=== PATIENT | female | born 1960 | race Caucasian/White ===

== ENCOUNTER 2022-02-22 08:48 | Inpatient (IN) | payer OTHER ==
[~2022-02-22] VITALS: Ht 167.6 cm; Wt 50.1 kg
[2022-02-22] MEDS ORDERED: DEXAMETHASONE SOD PHOS 10 MG/1 ML VIAL IV STA (09:00)
[2022-02-22] MEDS ORDERED: ALBUTEROL SULF 0.083% NEB SOLN 3 ML NEB NEB STA (09:00)
[2022-02-22] MEDS ORDERED: IPRATROPIUM BROMIDE 0.02% 2.5 ML NEB NEB ONE (09:00)
[2022-02-22 09:16] LABS: BASOPHILS % 0.2 % (0.0-1.0); EOSINOPHILS # (AUTO) 0.1 (0.0-0.4); EOSINOPHILS % 0.4 % (0.0-6.0); HEMATOCRIT 37.9 % (34.2-44.1); HEMOGLOBIN 12.6 g/dL (12.0-16.0); LYMPHOCYTES # (AUTO) 2.1 (1.0-3.2); MEAN CORPUSCULAR HEMOGLOBIN 33.7 pg (28-32); MEAN CORPUSCULAR HGB CONC 33.2 g/dL (31-35); MEAN CORPUSCULAR VOLUME 101.3 fL (81-99); MONOCYTES # (AUTO) 1.2 (0.2-0.8); MONOCYTES % 7.3 % (4.4-11.3); NEUTROPHILS # (AUTO) 12.7 (2.1-6.9); NEUTROPHILS % 78.1 % (38.7-80.0); PLATELET COUNT 414 x10e3/uL (140-360); RED BLOOD COUNT 3.74 x10e6/uL (3.6-5.1); RED CELL DISTRIBUTION WIDTH 13.2 % (11.7-14.4)
[2022-02-22] MEDS ORDERED: METHYLPREDNISOLONE SOD SUCC 125 MG/2ML VIAL IM ONE (09:30)
[2022-02-22] MEDS ORDERED: ONDANSETRON HCL 4 MG ORAL DISINTEGRATING TAB PO ONE (09:30)
[2022-02-22 09:45] LABS: ALBUMIN 3.8 g/dL (3.5-5.0); ALBUMIN/GLOBULIN RATIO 1.1 (0.8-2.0); ALKALINE PHOSPHATASE 84 IU/L (40-150); ANION GAP 15.9 mmol/L (8-16); BLOOD UREA NITROGEN 18 mg/dL (7-26); BUN/CREATININE RATIO 13 (6-25); CALCIUM 8.8 mg/dL (8.4-10.2); CARBON DIOXIDE 18 mmol/L (22-29); CHLORIDE 109 mmol/L (98-107); CREATININE, SERUM 1.44 mg/dL (0.57-1.11); GLUCOSE 109 mg/dL (74-118); SODIUM 140 mmol/L (136-145)
[2022-02-22 09:46] LABS: ALANINE AMINOTRANSFERASE < 6 IU/L (0-55); POTASSIUM 2.9 mmol/L (3.5-5.1)
[2022-02-22] MEDS ORDERED: ALBUTEROL/IPRATROPIUM 3 ML NEB NEB ONE ×2 (11:00→14:45)
[2022-02-22] MEDS: SODIUM CHLORIDE 0.9% 1000ML 1,000 ML IV SCH ×2 (13:30→18:03)
[2022-02-22] MEDS ORDERED: DIPHENHYDRAMINE HCL INJ 50 MG/ML VIAL IV ONE (14:30)
[2022-02-22] MEDS ORDERED: FAMOTIDINE 20 MG/2 ML VIAL IV ONE ×2 (14:47→14:49)
[2022-02-22] MEDS ORDERED: PROMETHAZINE 25MG/SOD CHL 0.9% 50 ML IV ONE (14:50)
[2022-02-22] MEDS ORDERED: ALBUTEROL/IPRATROPIUM 3 ML NEB ONE (14:55)
[2022-02-22] MEDS ORDERED: SODIUM CHLORIDE 0.9% 1000ML 1,000 ML IV SCH (16:00)
[2022-02-22] MEDS ORDERED: LORAZEPAM INJ 2 MG/ML VIAL IV ONE (16:00)
[2022-02-22] MEDS ORDERED: IOPAMIDOL 370 MG/ML 100 ML INFUS..BTL INJ ONE (16:02)
[2022-02-22] MEDS ORDERED: POTASSIUM CHLORIDE 20 MEQ TAB CR PO ONE (17:32)
[2022-02-22 18:00] VITALS: BP 110/76
[2022-02-22 18:34] VITALS: BP 116/80
[2022-02-22 19:00] VITALS: BP 88/70
[2022-02-22] MEDS ORDERED: ALBUTEROL0.63 MG/3 NEB (19:14)
[2022-02-22] MEDS ORDERED: TRELOGY (19:14)
[2022-02-22] MEDS ORDERED: ASPIRIN81 MG PO (19:14)
[2022-02-23] MEDS: SODIUM CHLORIDE 0.9% 1000ML 1,000 ML IV SCH ×2 (00:18→10:04)
[2022-02-23 07:00] VITALS: BP 120/72
[2022-02-23 07:08] LABS: BASOPHILS % 0.2 % (0.0-1.0); HEMATOCRIT 33.5 % (34.2-44.1); HEMOGLOBIN 10.9 g/dL (12.0-16.0); LYMPHOCYTES # (AUTO) 1.3 (1.0-3.2); MEAN CORPUSCULAR HEMOGLOBIN 33.7 pg (28-32); MEAN CORPUSCULAR HGB CONC 32.5 g/dL (31-35); MEAN CORPUSCULAR VOLUME 103.7 fL (81-99); MONOCYTES # (AUTO) 0.9 (0.2-0.8); MONOCYTES % 5.5 % (4.4-11.3); NEUTROPHILS # (AUTO) 14.1 (2.1-6.9); PLATELET COUNT 184 x10e3/uL (140-360); RED BLOOD COUNT 3.23 x10e6/uL (3.6-5.1); RED CELL DISTRIBUTION WIDTH 13.5 % (11.7-14.4)
[2022-02-23 07:29] LABS: CALCIUM 7.5 mg/dL (8.4-10.2); CREATININE, SERUM 1.32 mg/dL (0.57-1.11)
[2022-02-23 10:00] VITALS: BP 120/72
[2022-02-23] MEDS: ONDANSETRON HCL INJ 2MG/ML 2ML 2 MG/ML VIAL IV PRN ×2 (10:11→22:10)
[2022-02-23 12:00] VITALS: BP 146/73
[2022-02-23 15:18] VITALS: BP 141/73
[2022-02-23 20:00] VITALS: BP 133/79
[2022-02-23] MEDS: LORAZEPAM 1 MG TAB PO PRN (22:07)
[2022-02-23 22:48] VITALS: BP 133/79
[2022-02-24] VITALS (8 sets, daily range): BP systolic 119–147; BP diastolic 76–85
[2022-02-24] MEDS: SODIUM CHLORIDE 0.9% 1000ML 1,000 ML IV SCH ×2 (05:37→13:53)
[2022-02-24] MEDS: LORAZEPAM 1 MG TAB PO PRN ×2 (09:09→20:58)
[2022-02-24] MEDS: ALBUTEROL/IPRATROPIUM 3 ML NEB NEB PRN (15:40)
[2022-02-24] MEDS: ONDANSETRON HCL INJ 2MG/ML 2ML 2 MG/ML VIAL IV PRN (20:36)
[2022-02-24] MEDS: BUDESONIDE 0.5MG/2 ML NEB INH SCH (22:45)
[2022-02-25] VITALS (7 sets, daily range): BP systolic 124–158; BP diastolic 77–98
[2022-02-25] MEDS: SODIUM CHLORIDE 0.9% 1000ML 1,000 ML IV SCH ×3 (03:36→10:20)
[2022-02-25] MEDS ORDERED: DOCUSATE SODIUM 100 MG CAP PO SCH (10:30)
[2022-02-25] MEDS ORDERED: SENNOSIDES 8.6 MG TAB PO SCH (10:30)
[2022-02-25 10:54] LABS: BASOPHILS % 0.2 % (0.0-1.0); EOSINOPHILS # (AUTO) 0.1 (0.0-0.4); EOSINOPHILS % 0.5 % (0.0-6.0); HEMATOCRIT 31.7 % (34.2-44.1); HEMOGLOBIN 10.3 g/dL (12.0-16.0); LYMPHOCYTES # (AUTO) 1.1 (1.0-3.2); LYMPHOCYTES % 11.4 % (18.0-39.1); MEAN CORPUSCULAR HEMOGLOBIN 33.6 pg (28-32); MEAN CORPUSCULAR HGB CONC 32.5 g/dL (31-35); MEAN CORPUSCULAR VOLUME 103.3 fL (81-99); MONOCYTES # (AUTO) 0.8 (0.2-0.8); MONOCYTES % 7.9 % (4.4-11.3); NEUTROPHILS # (AUTO) 7.8 (2.1-6.9); NEUTROPHILS % 77.9 % (38.7-80.0); PLATELET COUNT 129 x10e3/uL (140-360); RED BLOOD COUNT 3.07 x10e6/uL (3.6-5.1); RED CELL DISTRIBUTION WIDTH 13.3 % (11.7-14.4)
[2022-02-25] MEDS: ALBUTEROL/IPRATROPIUM 3 ML NEB NEB PRN ×2 (11:10→14:49)
[2022-02-25 11:37] LABS: ANION GAP 12.8 mmol/L (8-16); CALCIUM 7.6 mg/dL (8.4-10.2); CREATININE, SERUM 0.95 mg/dL (0.57-1.11)
[2022-02-25 11:41] LABS: POTASSIUM 2.8 mmol/L (3.5-5.1)
[2022-02-25] MEDS: PREDNISONE 20 MG TAB PO SCH (11:51)
[2022-02-25] MEDS ORDERED: POTASSIUM CHLORIDE 20 MEQ TAB CR PO ONE ×3 (12:13→22:15)
[2022-02-25] MEDS: ENOXAPARIN SOD INJ 40 MG/0.4 ML SYR SC SCH (16:57)
[2022-02-25 17:55] LABS: MAGNESIUM 1.1 MG/DL (1.3-2.1)
[2022-02-25] MEDS ORDERED: POTASSIUM CHLORIDE 20 MEQ TAB CR PO STA (18:05)
[2022-02-25] MEDS ORDERED: MAGNESIUM SULFATE 2GM/50ML 50 ML IV ONE ×2 (18:15→20:15)
[2022-02-25] MEDS: ALBUTEROL/IPRATROPIUM 3 ML NEB NEB SCH (19:15)
[2022-02-25] MEDS: LORAZEPAM 1 MG TAB PO PRN (21:22)
[2022-02-26] VITALS (8 sets, daily range): BP systolic 95–147; BP diastolic 43–97
[2022-02-26] MEDS: ALBUTEROL/IPRATROPIUM 3 ML NEB NEB SCH ×4 (01:05→18:38)
[2022-02-26] MEDS: POTASSIUM CHLORIDE 20 MEQ TAB CR PO SCH ×2 (01:14→09:58)
[2022-02-26] MEDS: LORAZEPAM 1 MG TAB PO PRN ×3 (03:42→22:26)
[2022-02-26] MEDS: BUDESONIDE 0.5MG/2 ML NEB INH SCH ×2 (06:45→18:38)
[2022-02-26 07:24] LABS: BASOPHILS % 0.2 % (0.0-1.0); HEMATOCRIT 30.2 % (34.2-44.1); HEMOGLOBIN 9.9 g/dL (12.0-16.0); LYMPHOCYTES # (AUTO) 0.7 (1.0-3.2); MEAN CORPUSCULAR HEMOGLOBIN 33.4 pg (28-32); MEAN CORPUSCULAR HGB CONC 32.8 g/dL (31-35); MONOCYTES # (AUTO) 0.5 (0.2-0.8); MONOCYTES % 5.8 % (4.4-11.3); NEUTROPHILS # (AUTO) 7.6 (2.1-6.9); NEUTROPHILS % 83.4 % (38.7-80.0); PLATELET COUNT 114 x10e3/uL (140-360); RED BLOOD COUNT 2.96 x10e6/uL (3.6-5.1)
[2022-02-26] MEDS ORDERED: ACETAMINOPHEN 325 MG TAB PO PRN (07:30)
[2022-02-26 08:00] LABS: ALBUMIN/GLOBULIN RATIO 1.1 (0.8-2.0); ANION GAP 11.6 mmol/L (8-16); POTASSIUM 4.6 mmol/L (3.5-5.1)
[2022-02-26 08:10] LABS: MAGNESIUM 2.3 MG/DL (1.3-2.1)
[2022-02-26 08:30] LABS: FERRITIN 172.28 ng/mL (4.63-204.00); THYROID STIMULATING HORMONE 0.582 uIU/mL (0.350-4.940)
[2022-02-26] MEDS: PREDNISONE 20 MG TAB PO SCH (09:59)
[2022-02-26] MEDS ORDERED: CYANOCOBALAMIN INJ 1,000 MCG/ML VIAL IM ONE (10:30)
[2022-02-26] MEDS: GUAIFENESIN/DEXTROMETHORPHAN LIQD 5 ML UDC PO PRN (11:49)
[2022-02-26] MEDS: ENOXAPARIN SOD INJ 40 MG/0.4 ML SYR SC SCH (19:14)
[2022-02-27] VITALS (7 sets, daily range): BP systolic 136–150; BP diastolic 88–96
[2022-02-27] MEDS: ALBUTEROL/IPRATROPIUM 3 ML NEB NEB SCH ×4 (00:55→19:15)
[2022-02-27 06:30] LABS: ALANINE AMINOTRANSFERASE 11 IU/L (0-55); ALBUMIN 3.2 g/dL (3.5-5.0); ALBUMIN/GLOBULIN RATIO 1.1 (0.8-2.0); ALKALINE PHOSPHATASE 61 IU/L (40-150); ANION GAP 9.9 mmol/L (8-16); BLOOD UREA NITROGEN 10 mg/dL (7-26); BUN/CREATININE RATIO 10 (6-25); CALCIUM 8.5 mg/dL (8.4-10.2); CARBON DIOXIDE 20 mmol/L (22-29); CHLORIDE 114 mmol/L (98-107); CREATININE, SERUM 0.98 mg/dL (0.57-1.11); GLUCOSE 105 mg/dL (74-118); MAGNESIUM 2.1 MG/DL (1.3-2.1); POTASSIUM 3.9 mmol/L (3.5-5.1); SODIUM 140 mmol/L (136-145)
[2022-02-27] MEDS: BUDESONIDE 0.5MG/2 ML NEB INH SCH ×2 (06:30→19:15)
[2022-02-27 07:05] LABS: BASOPHILS % 0.2 % (0.0-1.0); EOSINOPHILS % 0.1 % (0.0-6.0); HEMATOCRIT 30.9 % (34.2-44.1); LYMPHOCYTES # (AUTO) 1.2 (1.0-3.2); LYMPHOCYTES % 11.4 % (18.0-39.1); MEAN CORPUSCULAR HEMOGLOBIN 33.4 pg (28-32); MEAN CORPUSCULAR HGB CONC 32.4 g/dL (31-35); MEAN CORPUSCULAR VOLUME 103.3 fL (81-99); MONOCYTES # (AUTO) 0.5 (0.2-0.8); MONOCYTES % 4.7 % (4.4-11.3); NEUTROPHILS # (AUTO) 8.5 (2.1-6.9); NEUTROPHILS % 81.2 % (38.7-80.0); RED BLOOD COUNT 2.99 x10e6/uL (3.6-5.1); RED CELL DISTRIBUTION WIDTH 13.3 % (11.7-14.4)
[2022-02-27 07:08] LABS: PLATELET COUNT 91 x10e3/uL (140-360)
[2022-02-27] MEDS: POTASSIUM CHLORIDE 20 MEQ TAB CR PO SCH (09:10)
[2022-02-27] MEDS: CYANOCOBALAMIN INJ 1,000 MCG/ML VIAL IM SCH (09:11)
[2022-02-27] MEDS: DILTIAZEM HCL 30 MG TAB PO SCH ×2 (09:22→16:43)
[2022-02-27] MEDS: GUAIFENESIN/DEXTROMETHORPHAN LIQD 5 ML UDC PO PRN (09:23)
[2022-02-27] MEDS: ONDANSETRON HCL INJ 2MG/ML 2ML 2 MG/ML VIAL IV PRN (15:15)
[2022-02-27] MEDS: ENOXAPARIN SOD INJ 40 MG/0.4 ML SYR SC SCH (16:42)
[2022-02-27] MEDS: ACETYLCYSTEINE 200 MG/ML 4ML VIAL INH SCH (19:15)
[2022-02-27] MEDS: LORAZEPAM 1 MG TAB PO PRN (21:38)
[2022-02-27] MEDS ORDERED: DIPHENHYDRAMINE HCL 25 MG CAP PO PRN (22:00)
[2022-02-28] VITALS: BP 118/67
[2022-02-28] MEDS: ALBUTEROL/IPRATROPIUM 3 ML NEB NEB SCH ×4 (01:05→18:35)
[2022-02-28 04:00] VITALS: BP 113/86
[2022-02-28 06:14] LABS: BASOPHILS % 0.3 % (0.0-1.0); EOSINOPHILS % 0.1 % (0.0-6.0); HEMATOCRIT 31.8 % (34.2-44.1); LYMPHOCYTES # (AUTO) 1.7 (1.0-3.2); LYMPHOCYTES % 14.3 % (18.0-39.1); MEAN CORPUSCULAR HEMOGLOBIN 33.3 pg (28-32); MEAN CORPUSCULAR HGB CONC 31.4 g/dL (31-35); MONOCYTES # (AUTO) 0.6 (0.2-0.8); MONOCYTES % 5.1 % (4.4-11.3); NEUTROPHILS % 76.8 % (38.7-80.0); PLATELET COUNT 103 x10e3/uL (140-360); RED CELL DISTRIBUTION WIDTH 13.4 % (11.7-14.4)
[2022-02-28 06:36] LABS: CALCIUM 8.5 mg/dL (8.4-10.2); CREATININE, SERUM 0.97 mg/dL (0.57-1.11)
[2022-02-28] MEDS: ACETYLCYSTEINE 200 MG/ML 4ML VIAL INH SCH ×2 (06:41→19:00)
[2022-02-28] MEDS: BUDESONIDE 0.5MG/2 ML NEB INH SCH ×2 (06:41→18:35)
[2022-02-28 08:41] VITALS: BP 128/92
[2022-02-28 08:58] LABS: LYMPHOCYTES % (MANUAL) 10 % (19-48); MONOCYTES % (MANUAL) 4 % (3.4-9.0); NEUTROPHILS % (MANUAL) 86 % (40-74); PLATELET ESTIMATE SLIGHTLY DECREASED; PLATELET MORPHOLOGY COMMENT NORMAL; RBC MORPHOLOGY COMMENT NORMAL
[2022-02-28] MEDS ORDERED: ASPIRIN 81 MG ENTERIC COATED PO SCH (09:00)
[2022-02-28] MEDS ORDERED: PREDNISONE 10 MG TAB PO SCH (09:00)
[2022-02-28] MEDS: DILTIAZEM HCL 30 MG TAB PO SCH ×2 (09:04→16:47)
[2022-02-28] MEDS: POTASSIUM CHLORIDE 20 MEQ TAB CR PO SCH (09:04)
[2022-02-28] MEDS: CYANOCOBALAMIN INJ 1,000 MCG/ML VIAL IM SCH (09:05)
[2022-02-28] MEDS: LORAZEPAM 1 MG TAB PO PRN (09:11)
[2022-02-28 12:00] VITALS: BP 170/91
[2022-02-28] MEDS: ENOXAPARIN SOD INJ 40 MG/0.4 ML SYR SC SCH (16:47)
[2022-02-28 17:20] VITALS: BP 125/81
[2022-02-28] MEDS ORDERED: [UNRECOGNIZED DRUG - OTHER] (18:45)
[2022-03-01] MEDS ORDERED: AZITHROMYCIN 250 MG TAB PO SCH (09:00)
== END 2022-02-28 19:38 | disposition home or self-care (01) | DRG 190 ==
LOC: ER 08:55 → ERHOLD 12:00 → ICU 17:23 → MED/SURG2 02-23 12:44
PROC: 02HV33Z Insertion of Infusion Device into Superior Vena Cava, Percutaneous Approach (ICD-10-PCS; principal; 2022-02-22)
DX: J43.9 Emphysema, unspecified (principal); J96.21 Acute and chronic respiratory failure with hypoxia; K50.90 Crohn's disease, unspecified, without complications; I47.1 Supraventricular tachycardia; Z87.891 Personal history of nicotine dependence; B18.2 Chronic viral hepatitis C; D64.9 Anemia, unspecified; Z20.822 Contact with and (suspected) exposure to COVID-19; K43.2 Incisional hernia without obstruction or gangrene; I27.20 Pulmonary hypertension, unspecified
CPT/HCPCS: 36415; 36569; 71045; 71046; 71260; 80048; 80053; 82607; 82728; 82746; 82948; 83540; 83605; 83735; 83880; 84132; 84443; 84466; 84484; 85025; 86340; 87040; 87070; 87205; 93005; 94640; 94667; 94669; 94760; 94799; 96360; 99285; J0456; J0696; J1100; J1200; J1650; J2060; J2405; J2550; J2930; J3420; J3475; J7030; J7050; J7512; Q0162; Q9967

== ENCOUNTER → 2023-12-25 | Outpatient (REF) | payer OTHER ==
[~2023-12-25] MED LIST: ALBUTEROL0.63 MG/3 NEB; ASPIRIN81 MG PO; ATORVASTATIN CA40 MG PO; CHOLESTYRAMINE L4 GM PO; TRELOGY; TYLENOL325 M2 PO; ULTRAM 50MG50 MG PO; [UNRECOGNIZED DRUG - OTHER]
== END ==
LOC: CT 15:06
PROVIDERS: ATTEND Internal Medicine Critical Care Medicine
DX: J44.9 Chronic obstructive pulmonary disease, unspecified (principal)
CPT/HCPCS: 71250

== ENCOUNTER 2024-10-23 08:47 | Inpatient (IN) | payer MEDICAID ==
[2024-10-23] VITALS (7 sets, daily range): BP systolic 143; BP diastolic 80; PULSE 83–100; RESP 20; TEMP 97.7–98; O2SAT 98–100
[~2024-10-23] VITALS: Ht 167.6 cm; Wt 47.6 kg
[2024-10-23 10:45] LABS: BASOPHILS % 0.6 % (0.0-1.0); EOSINOPHILS % 1.2 % (0.0-6.0); LYMPHOCYTES % 17.9 % (18.0-39.1); MONOCYTES % 8.4 % (4.4-11.3); NEUTROPHILS % 71.2 % (38.7-80.0); RED CELL DISTRIBUTION WIDTH 14.5 % (11.7-14.4)
[2024-10-23] MEDS: ALBUTEROL/IPRATROPIUM 3 ML NEB NEB ONE (11:05)
[2024-10-23 11:14] LABS: ABG HCO3 12 mmol/L (22-26); ABG PCO2 24 mmHg (35-45); ABG PH 7.31 (7.35-7.45); ABG PO2 105 mmHg (80-105); ABG TCO2 13
[2024-10-23 11:15] LABS: ABG BASE EXCESS -14.0 mmol/L (-2 - 3); ABG OXYGEN SATURATION 98.0 % (95-98)
[2024-10-23] MEDS: SODIUM CHLORIDE 0.9% 1000ML 1,000 ML IV ONE (12:05)
[2024-10-23] MEDS: METHYLPREDNISOLONE SOD SUCC 125 MG/2ML VIAL IV ONE (12:06)
[2024-10-23 12:46] LABS: EST GLOMERULAR FILTRATION RATE 31.0 ML/MIN (>=60)
[2024-10-23] MEDS ORDERED: SODIUM CHLORIDE FLUSH 10 ML SYR INJ PRN (14:00)
[2024-10-23] MEDS: MAGNESIUM SULFATE 2GM/50ML 50 ML IV ONE ×2 (14:40→19:20)
[2024-10-23 16:39] LABS: ETHANOL < 10.0 mg/dL (0.0-10.0)
[2024-10-23] MEDS ORDERED: SODIUM BICARBONATE 8.4% VIAL 50 ML in SODIUM CHLORIDE 0.45% 1,000 ML IV SCH (17:00)
[2024-10-23] MEDS ORDERED: ALBUTEROL SULF 0.083% NEB SOLN 3 ML NEB NEB PRN (17:00)
[2024-10-23] MEDS ORDERED: Doxycycline IV 100 MG in SODIUM CHLORIDE 0.9% 100 ML IV SCH (18:00)
[2024-10-23] MEDS: BUDESONIDE/FORMOTEROL 160/4.5MCG INHALER INH SCH (19:00)
[2024-10-23] MEDS ORDERED: ACETAMINOPHEN 325 MG TAB PO PRN (23:30)
[2024-10-23] MEDS ORDERED: DIPHENHYDRAMINE HCL 25 MG CAP PO PRN (23:30)
[2024-10-24] VITALS (9 sets, daily range): BP systolic 108–168; BP diastolic 65–95; PULSE 60–105; RESP 16–20; TEMP 97.2–97.9; O2SAT 95–100
[2024-10-24] MEDS: ATORVASTATIN 40 MG TAB PO SCH (00:09)
[2024-10-24] MEDS: Doxycycline IV 100 MG in SODIUM CHLORIDE 0.9% 100 ML IV SCH (00:09)
[2024-10-24] MEDS: METHYLPREDNISOLONE SOD SUCC 125 MG/2ML VIAL IV SCH (00:09)
[2024-10-24] MEDS: TRAMADOL HCL 50 MG TAB PO PRN (00:10)
[2024-10-24] MEDS ORDERED: SODIUM CHLORIDE 0.45% 1,000 ML ONE (00:26)
[2024-10-24] MEDS ORDERED: SODIUM BICARBONATE 8.4% SYRING 50 ML ONE (00:26)
[2024-10-24] MEDS: SODIUM BICARBONATE 8.4% VIAL 50 ML in SODIUM CHLORIDE 0.45% 1,000 ML IV SCH (01:15)
[2024-10-24 06:20] LABS: BASOPHILS % 0.1 % (0.0-1.0); EOSINOPHILS % 0.0 % (0.0-6.0); LYMPHOCYTES % 10.4 % (18.0-39.1); MONOCYTES % 1.4 % (4.4-11.3); NEUTROPHILS % 87.4 % (38.7-80.0); RED CELL DISTRIBUTION WIDTH 13.7 % (11.7-14.4)
[2024-10-24 06:43] LABS: PHOSPHORUS 3.1 MG/DL (2.3-4.7)
[2024-10-24 06:59] LABS: EST GLOMERULAR FILTRATION RATE 43.0 ML/MIN (>=60)
[2024-10-24] MEDS ORDERED: MELATONIN 3 MG TAB PO SCH (21:00)
[2024-10-25] VITALS (8 sets, daily range): BP systolic 119–157; BP diastolic 70–89; PULSE 63–92; RESP 16–21; TEMP 97.3–98.3; O2SAT 95–100
[2024-10-25] MEDS ORDERED: CHOLESTYRAMINE 4 GM PACKET PO PRN (01:00)
[2024-10-25] MEDS ORDERED: LABETALOL HCL 5 MG/ML 20ML VIAL IV PRN (01:15)
[2024-10-25 07:42] LABS: BASOPHILS % 0.1 % (0.0-1.0); EOSINOPHILS % 0.0 % (0.0-6.0); LYMPHOCYTES % 6.9 % (18.0-39.1); MONOCYTES % 1.8 % (4.4-11.3); NEUTROPHILS % 90.3 % (38.7-80.0); RED CELL DISTRIBUTION WIDTH 13.7 % (11.7-14.4)
[2024-10-25 08:08] LABS: EST GLOMERULAR FILTRATION RATE 44.0 ML/MIN (>=60)
[2024-10-25] MEDS: ARTIFICIAL TEARS (OPTH) 15 ML BTL OU SCH (09:00)
[2024-10-25 09:02] LABS: CHOL/HDL RATIO 2.4 (3.0-3.6); LDL CHOLESTEROL 12.0 MG/DL (60-130)
[2024-10-25] MEDS ORDERED: LEVOFLOXACIN 500MG/D5W 100ML 100 ML IV SCH (13:00)
[2024-10-25] MEDS: SODIUM BICARBONATE 650 MG TAB PO SCH (17:53)
[2024-10-25] MEDS: DIPHENHYDRAMINE HCL 25 MG CAP PO PRN (20:56)
[2024-10-26] VITALS (11 sets, daily range): BP systolic 118–146; BP diastolic 61–93; PULSE 62–87; RESP 18–20; TEMP 97.4–98.2; O2SAT 95–100
[2024-10-26 05:36] LABS: EST GLOMERULAR FILTRATION RATE 47.0 ML/MIN (>=60)
[2024-10-26] MEDS: METHYLPREDNISOLONE SOD SUCC 40 MG/ML VIAL 1ML IV SCH (08:36)
[2024-10-26] MEDS: POTASSIUM CHLORIDE 20 MEQ TAB CR PO ONE (11:12)
[2024-10-26 15:33] LABS: % IRON SATURATION 26.0 % (15-50)
[2024-10-26] MEDS: CYANOCOBALAMIN INJ 1,000 MCG/ML VIAL IM SCH (18:40)
[2024-10-26] MEDS: IRON SUCROSE 100 MG in SODIUM CHLORIDE 0.9% 100 ML IV SCH (18:40)
[2024-10-27] VITALS (12 sets, daily range): BP systolic 113–134; BP diastolic 72–96; PULSE 62–78; RESP 17–22; TEMP 97.4–98; O2SAT 94–100
[2024-10-27 06:13] LABS: BASOPHILS % 0.2 % (0.0-1.0); EOSINOPHILS % 0.6 % (0.0-6.0); LYMPHOCYTES % 9.4 % (18.0-39.1); MONOCYTES % 6.0 % (4.4-11.3); NEUTROPHILS % 82.2 % (38.7-80.0); RED CELL DISTRIBUTION WIDTH 13.9 % (11.7-14.4)
[2024-10-27 06:53] LABS: EST GLOMERULAR FILTRATION RATE 48.0 ML/MIN (>=60)
[2024-10-27] MEDS: LACTATED RINGER'S 1,000 ML INJ SCH (10:38)
[2024-10-27] MEDS: POTASSIUM CHLORIDE 20 MEQ TAB CR PO ONE (10:38)
[2024-10-27] MEDS: SODIUM CHLORIDE 0.9% 250ML 250 ML IV ONE (10:56)
[2024-10-27] MEDS: ONDANSETRON HCL INJ 2MG/ML 2ML 2 MG/ML VIAL IV PRN (15:53)
[2024-10-28] VITALS (7 sets, daily range): BP systolic 117–132; BP diastolic 69–75; PULSE 65–79; RESP 18–20; TEMP 97.7–98; O2SAT 93–100
[2024-10-28 07:12] LABS: BASOPHILS % 0.2 % (0.0-1.0); EOSINOPHILS % 1.3 % (0.0-6.0); LYMPHOCYTES % 12.5 % (18.0-39.1); MONOCYTES % 4.8 % (4.4-11.3); NEUTROPHILS % 77.1 % (38.7-80.0); RED CELL DISTRIBUTION WIDTH 13.6 % (11.7-14.4)
[2024-10-28 07:37] LABS: EST GLOMERULAR FILTRATION RATE 61.0 ML/MIN (>=60)
[2024-10-28] MEDS: PREDNISONE 20 MG TAB PO SCH (08:40)
[2024-10-28] MEDS ORDERED: PREDNISONE20 MG PO (14:13)
[2024-10-28] MEDS ORDERED: SYMBICORT 16010.2 GM INH (14:13)
[2024-10-28] MEDS ORDERED: AUGMENTIN 500-1 EACH PO (14:13)
[2024-10-29 10:50] LABS: ABG BASE EXCESS -14.0 mmol/L (-2 - 3); ABG HCO3 12 mmol/L (22-26); ABG OXYGEN SATURATION 98.0 % (95-98); ABG PCO2 24 mmHg (35-45); ABG PH 7.31 (7.35-7.45); ABG PO2 105 mmHg (80-105); ABG TCO2 13
== END 2024-10-28 15:30 | disposition home or self-care (01) | DRG 682 ==
LOC: ER 09:53 → ERHOLD 13:55 → MED/SURG2 22:15
PROVIDERS: ADMIT Internal Medicine; ATTEND Internal Medicine
PROC: 4A133R1 Monitoring of Arterial Saturation, Peripheral, Percutaneous Approach (ICD-10-PCS; principal; 2024-10-23)
PROC: 02HV33Z Insertion of Infusion Device into Superior Vena Cava, Percutaneous Approach (ICD-10-PCS; 2024-10-25)
DX: N17.9 Acute kidney failure, unspecified (principal); J15.9 Unspecified bacterial pneumonia; R64 Cachexia; E87.20 Acidosis, unspecified; J44.1 Chronic obstructive pulmonary disease with (acute) exacerbation; J44.0 Chronic obstructive pulmonary disease with (acute) lower respiratory infection; K50.918 Crohn's disease, unspecified, with other complication; Z68.1 Body mass index [BMI] 19.9 or less, adult; E86.0 Dehydration; N18.31 Chronic kidney disease, stage 3a; J43.9 Emphysema, unspecified; K52.9 Noninfective gastroenteritis and colitis, unspecified; E83.42 Hypomagnesemia; E87.6 Hypokalemia; D50.9 Iron deficiency anemia, unspecified; R91.1 Solitary pulmonary nodule; R53.81 Other malaise; B18.2 Chronic viral hepatitis C; Z79.82 Long term (current) use of aspirin; Z86.73 Personal history of transient ischemic attack (TIA), and cerebral infarction without residual deficits; Z90.49 Acquired absence of other specified parts of digestive tract; Z88.1 Allergy status to other antibiotic agents; Z88.6 Allergy status to analgesic agent; F17.210 Nicotine dependence, cigarettes, uncomplicated
CPT/HCPCS: 36415; 36569; 36600; 71045; 71250; 80048; 80053; 80061; 80320; 80329; 82607; 82728; 82746; 82805; 83036; 83540; 83605; 83735; 84100; 84133; 84300; 84439; 84443; 84466; 85025; 85045; 93005; 94640; 94799; 99252; 99285; J0696; J1756; J2405; J2543; J2919; J3420; J3475; J7030; J7050; J7512

== ENCOUNTER 2024-10-29 20:59 | Inpatient (IN) | payer MEDICAID ==
[~2024-10-29] VITALS: Ht 167.6 cm; Wt 47.6 kg
[~2024-10-29 20:59] MED LIST changes: +AUGMENTIN 500-1 EACH PO; +PREDNISONE20 MG PO; +SYMBICORT 16010.2 GM INH
[2024-10-29 22:55] LABS: EST GLOMERULAR FILTRATION RATE 51.0 ML/MIN (>=60)
[2024-10-29 23:03] LABS: BASOPHILS % 0.2 % (0.0-1.0); EOSINOPHILS % 0.0 % (0.0-6.0); LYMPHOCYTES % 15.2 % (18.0-39.1); MONOCYTES % 6.4 % (4.4-11.3); NEUTROPHILS % 76.0 % (38.7-80.0); RED CELL DISTRIBUTION WIDTH 13.6 % (11.7-14.4)
[2024-10-30] VITALS (11 sets, daily range): BP systolic 95–145; BP diastolic 68–87; PULSE 71–103; RESP 16–20; TEMP 97.7–98.8; O2SAT 95–99
[2024-10-30] MEDS: ONDANSETRON HCL INJ 2MG/ML 2ML 2 MG/ML VIAL IV PRN (03:45)
[2024-10-30] MEDS: Morphine 2mg Syringe 2 MG/ML SYR IV PRN (03:45)
[2024-10-30] MEDS: FUROSEMIDE INJ 10 MG/ML 4 ML VIAL IV SCH (16:02)
[2024-10-30] MEDS: ENOXAPARIN 30 MG/0.3 ML SYR SC SCH (16:34)
[2024-10-31] VITALS (9 sets, daily range): BP systolic 89–107; BP diastolic 57–78; PULSE 52–106; RESP 12–20; TEMP 97.5–98.3; O2SAT 94–100
[2024-10-31 10:45] LABS: BASOPHILS % 0.2 % (0.0-1.0); EOSINOPHILS % 1.1 % (0.0-6.0); LYMPHOCYTES % 13.3 % (18.0-39.1); MONOCYTES % 6.5 % (4.4-11.3); NEUTROPHILS % 77.2 % (38.7-80.0); RED CELL DISTRIBUTION WIDTH 13.8 % (11.7-14.4)
[2024-10-31 11:04] LABS: EST GLOMERULAR FILTRATION RATE 34.0 ML/MIN (>=60)
[2024-10-31] MEDS ORDERED: ALBUTEROL SULF 0.083% NEB SOLN 3 ML NEB NEB PRN (14:15)
[2024-10-31 16:52] LABS: LEUKOCYTE ESTERASE ,URINE NEGATIVE (NEGATIVE); PROTEIN,URINE DIPSTICK NEGATIVE (NEGATIVE); URINE UROBILINOGEN 0.2 mg/dL (0.2 - 1)
[2024-10-31 17:03] LABS: EPITHELIAL CELLS,URINE RARE /LPF; WBC,URINE (MAN) 0-5 /HPF (0-5)
[2024-10-31] MEDS: BUDESONIDE/FORMOTEROL 160/4.5MCG INHALER INH SCH (19:06)
[2024-10-31] MEDS: ATORVASTATIN 40 MG TAB PO SCH (22:52)
[2024-11-01] VITALS (9 sets, daily range): BP systolic 100–128; BP diastolic 65–84; PULSE 65–88; RESP 16–18; TEMP 97.4–98.4; O2SAT 94–100
[2024-11-01 06:31] LABS: BASOPHILS % 0.1 % (0.0-1.0); EOSINOPHILS % 1.0 % (0.0-6.0); LYMPHOCYTES % 11.8 % (18.0-39.1); MONOCYTES % 5.0 % (4.4-11.3); NEUTROPHILS % 80.4 % (38.7-80.0); RED CELL DISTRIBUTION WIDTH 13.8 % (11.7-14.4)
[2024-11-01 06:47] LABS: EST GLOMERULAR FILTRATION RATE 35.0 ML/MIN (>=60)
[2024-11-01] MEDS: FUROSEMIDE INJ 10 MG/ML 4 ML VIAL IV SCH (08:07)
[2024-11-01] MEDS: POTASSIUM CHLORIDE 10MEQ EA PO ONE (08:09)
[2024-11-01] MEDS: METOPROLOL SUCCINATE 25 MG TAB XL PO SCH (17:21)
[2024-11-02] VITALS (9 sets, daily range): BP systolic 106–122; BP diastolic 61–82; PULSE 64–92; RESP 17–18; TEMP 97.7–98.9; O2SAT 95–100
[2024-11-02 07:21] LABS: EST GLOMERULAR FILTRATION RATE 37.0 ML/MIN (>=60)
[2024-11-02 07:27] LABS: BASOPHILS % 0.2 % (0.0-1.0); EOSINOPHILS % 1.5 % (0.0-6.0); LYMPHOCYTES % 16.1 % (18.0-39.1); MONOCYTES % 5.3 % (4.4-11.3); NEUTROPHILS % 76.0 % (38.7-80.0); RED CELL DISTRIBUTION WIDTH 13.6 % (11.7-14.4)
[2024-11-02] MEDS: CYANOCOBALAMIN INJ 1,000 MCG/ML VIAL IM SCH (10:21)
[2024-11-02] MEDS: IRON SUCROSE 100 MG in SODIUM CHLORIDE 0.9% 100 ML IV SCH (10:22)
[2024-11-02 13:43] LABS: BAND NEUTROPHILS % (MANUAL) 2 %; EOSINOPHILS % (MANUAL) 3 % (0-7); LYMPHOCYTES % (MANUAL) 14 % (19-48); MONOCYTES % (MANUAL) 4 % (3.4-9.0); NEUTROPHILS % (MANUAL) 77 % (40-74)
[2024-11-02 13:45] LABS: PLATELET ESTIMATE ADEQUATE; PLATELET MORPHOLOGY COMMENT NORMAL; RBC MORPHOLOGY COMMENT NORMAL
[2024-11-03] VITALS (7 sets, daily range): BP systolic 106–127; BP diastolic 62–80; PULSE 65–95; RESP 16–18; TEMP 97.1–98.2; O2SAT 95–100
[2024-11-03] MEDS: ASCORBIC ACID 500 MG TAB PO SCH (08:31)
[2024-11-03] MEDS ORDERED: ASCORBIC ACID500 MG PO (12:24)
[2024-11-03] MEDS ORDERED: ONE-A-DAY ESSE1 EACH PO (12:24)
[2024-11-03] MEDS ORDERED: TOPROL XL25 MG PO (12:24)
[2024-11-03] MEDS ORDERED: FEROSUL325 MG PO (12:24)
[2024-11-03] MEDS ORDERED: AUGMENTIN 500-1 EACH PO (12:24)
[2024-11-03] MEDS ORDERED: LASIX40 MG PO (12:24)
== END 2024-11-03 17:20 | disposition home or self-care (01) | DRG 291 ==
LOC: ER 21:02 → ERHOLD 10-30 00:46 → MED/SURG 10-30 02:01
PROVIDERS: ADMIT Internal Medicine; ATTEND Internal Medicine
PROC: 05HY33Z Insertion of Infusion Device into Upper Vein, Percutaneous Approach (ICD-10-PCS; principal; 2024-10-30)
DX: I50.43 Acute on chronic combined systolic (congestive) and diastolic (congestive) heart failure (principal); J18.9 Pneumonia, unspecified organism; L03.114 Cellulitis of left upper limb; K50.90 Crohn's disease, unspecified, without complications; L03.113 Cellulitis of right upper limb; J44.9 Chronic obstructive pulmonary disease, unspecified; B19.20 Unspecified viral hepatitis C without hepatic coma; D72.829 Elevated white blood cell count, unspecified; R60.0 Localized edema; N28.9 Disorder of kidney and ureter, unspecified; J43.8 Other emphysema; E87.6 Hypokalemia; D50.9 Iron deficiency anemia, unspecified; D51.3 Other dietary vitamin B12 deficiency anemia; T38.0X5A Adverse effect of glucocorticoids and synthetic analogues, initial encounter; I78.1 Nevus, non-neoplastic; R11.0 Nausea; Z86.73 Personal history of transient ischemic attack (TIA), and cerebral infarction without residual deficits; Z88.1 Allergy status to other antibiotic agents; Z88.8 Allergy status to other drugs, medicaments and biological substances; Z79.52 Long term (current) use of systemic steroids; Z79.51 Long term (current) use of inhaled steroids; Z87.891 Personal history of nicotine dependence; Y92.009 Unspecified place in unspecified non-institutional (private) residence as the place of occurrence of the external cause
CPT/HCPCS: 36415; 36569; 71045; 76700; 80048; 80053; 81001; 82550; 83690; 83880; 84484; 85025; 93005; 93306; 93970; 94799; 99284; J1650; J1756; J1938; J2270; J2405; J2543; J3420; J7050